=== PATIENT | female | born 1960 | race Caucasian/White ===

== ENCOUNTER 2016-10-21 07:17 | Emergency (ER) | payer MEDICARE, MEDICAID ==
[~2016-10-21] VITALS: Ht 167.6 cm; Wt 56.2 kg
[~2016-10-21 07:17] MED LIST: ACIDOPHILUS1 EAC6 PO; ADULT WAL-100 MG/5 M ORAL; ATIVAN2 MG ORAL; ENALAPRIL MALE2.5 MG ORAL; KLONOPIN0.5 MG ORAL; KLONOPIN1 MG ORAL; LYSINE PO; MUCINEX100 MG PO; SYNTHROID88 MCG ORAL; VESICARE5 MG ORAL
[2016-10-21 07:50] VITALS: BP 98/63
--- NOTE | 2016-10-21 07:54 | Emergency Room Report ---
History of Present Illness General Chief Complaint: Female Urogenital Problems Source: Patient, Family Member Present Illness HPI The patient is brought in by her sister. Apparently she was started on ciprofloxacin for possible UTI. She has no symptoms but the underwear has been somewhat smelly. There's no fever, vomiting, diarrhea, abdominal pain, dysuria , polyuria. Ciprofloxacin one dose was given last night. Family member states that her recent kidney function is been off and physicians have been following her creatinines. She doesn't have recent lab studies. She also doesn't have a copy of the urinalysis that was performed. She only has one kidney. The patient is on Klonopin and is developmentally delayed. She also has a history of hypertension. There is some question whether she is bipolar and they 're considering use of Paxil or other medication. The sister is looking for a competent psychiatrist for evaluation. Patient rambles and does not answer most questions, however she denies pain. Allergies: Coded Allergies: No Known Allergies (Unverified , 08/01/14) Patient History Past Medical History: see triage record Social History Narrative assisted living, now with sister for weekend Last Menstrual Period: na Reviewed Nursing Documentation: PMH: Agreed, PSxH: Agreed Nursing Documentation-PMH Past Medical History: No History, Except For Review of Systems All Other Systems: negative except mentioned in HPI Physical Exam Vital Signs Date Time Temp Pulse Resp B/P (MAP) Pulse Ox O2 Delivery O2 Flow Rate FiO2 10/21/16 07:25 98.1 62 18 98/63 98 Room Air Sp02 EP Interpretation: reviewed, normal General Appearance: well appearing, no apparent distress, thin, other - GCS 14 Head: normocephalic Eyes: bilateral eye normal inspection, bilateral eye PERRL ENT: moist mucus membranes, other - hearing aids Neck: supple Respiratory: lungs clear, normal breath sounds Cardiovascular #1: regular rate, rhythm Cardiovascular #2: 2+ radial (R) Gastrointestinal: normal inspection, normal bowel sounds, non tender, no mass, non-distended Genitourinary: no CVA tenderness Musculoskeletal: back normal, gait/station normal, normal range of motion Neurologic: alert, motor strength/tone normal, sensory intact, normal gait, speech normal - rambling, oriented - X2 Psychiatric: mood/affect normal - flat and loquatious Skin: normal inspection, warm/dry Medical Decision Making Diagnostic Impression: Primary Impression: Renal insufficiency Additional Impressions: Dehydration Development delay Chromosomal abnormality ER Course The patient presents with possible UTI and a suggestion of elevated creatinine. One dose of ciprofloxacin has been given. The patient will be evaluated with urinalysis and labs. No significant pyuria. Creatinine is elevated. Lytes OK. Normal WBC. One dose of cipro last night should not correct pyuria. Suspect contamination. Based on elevated creatinine, I believe cipro is not indicated and might cause harm. Copies of labs sent with sister who had many questions which were answered. Patient stable for outpatient observation and treatment. Laboratory Tests Test 10/21/16 05:00 10/21/16 07:50 White Blood Count 4.2 K/UL (4.8-10.8) L Red Blood Count 3.99 M/UL (4.20-5.40) L Hemoglobin 13.0 G/DL (12.0-16.0) Hematocrit 38.5 % (37.0-47.0) Mean Corpuscular Volume 96 FL (80-99) Mean Corpuscular Hemoglobin 32.6 PG (27.0-31.0) H Mean Corpuscular Hemoglobin Concent 33.8 G/DL (32.0-36.0) Red Cell Distribution Width 12.3 % (11.6-14.8) Platelet Count 120 K/UL (150-450) L Mean Platelet Volume 8.5 FL (6.5-10.1) Neutrophils (%) (Auto) 62.7 % (45.0-75.0) Lymphocytes (%) (Auto) 23.8 % (20.0-45.0) Monocytes (%) (Auto) 9.4 % (1.0-10.0) Eosinophils (%) (Auto) 3.5 % (0.0-3.0) H Basophils (%) (Auto) 0.6 % (0.0-2.0) Sodium Level 139 mEQ/L (135-145) Potassium Level 4.5 mEQ/L (3.4-4.9) Chloride Level 102 mEQ/L (98-107) Carbon Dioxide Level 28 mEQ/L (20-30) Anion Gap 9 (5-15) Blood Urea Nitrogen 34 mg/dL (7-23) H Creatinine 1.6 mg/dL (0.5-0.9) H Estimate Glomerular Filtration Rate 33.5 mL/min (>60) Glucose Level 96 mg/dL (74-106) Calcium Level 9.7 mg/dL (8.6-10.2) Total Bilirubin 0.2 mg/dL (0.0-1.2) Aspartate Amino Transferase (AST) 28 U/L (5-40) Alanine Aminotransferase (ALT) 34 U/L (3-33) H Alkaline Phosphatase 63 U/L (35-104) Total Protein 7.1 g/dL (6.6-8.7) Albumin 4.3 g/dL (3.5-5.2) Globulin 2.8 g/dL Albumin/Globulin Ratio 1.5 (1.0-2.7) Urine Color Pale yellow Urine Appearance Clear Urine pH 6 (4.5-8.0) Urine Specific [place] 1.010 (1.005-1.035) Urine Protein Negative (NEGATIVE) Urine Glucose (UA) Negative (NEGATIVE) Urine Ketones Negative (NEGATIVE) Urine Occult Blood Negative (NEGATIVE) Urine Nitrite Negative (NEGATIVE) Urine Bilirubin Negative (NEGATIVE) Urine Urobilinogen Normal MG/DL (0.0-1.0) Urine Leukocyte Esterase 1+ (NEGATIVE) H Urine RBC 0-2 /HPF (0 - 2) Urine WBC 2-4 /HPF (0 - 2) Urine Squamous Epithelial Cells Few /LPF (NONE/OCC) Urine Bacteria Few /HPF (NONE) Last Vital Signs Date Time Temp Pulse Resp B/P (MAP) Pulse Ox O2 Delivery O2 Flow Rate FiO2 10/21/16 09:40 98.1 68 18 96/56 100 Room Air Status: improved Disposition: HOME, SELF-CARE Condition: Improved Referrals: NON PHYSICIAN (PCP) Tristan Krause M.D. Oct 21, 2016 07:54
[2016-10-21 08:02] LABS: APPEARANCE,URINE CLEAR; KETONES,URINE NEGATIVE (NEGATIVE); LEUKOCYTE ESTERASE ,URINE 1+ (NEGATIVE); NITRITE,URINE NEGATIVE (NEGATIVE); PH,URINE 6 (4.5-8.0); PROTEIN,URINE NEGATIVE (NEGATIVE); UROBILINOGEN,URINE NORMAL MG/DL (0.0-1.0)
[2016-10-21 08:22] LABS: BACTERIA,URINE FEW /HPF; RBC,URINE 0-2 /HPF (0 - 2); SQUAMOUS EPITHELIAL CELL,UR FEW /LPF (NONE/OCC)
[2016-10-21 08:37] LABS: BASOPHILS % (AUTO) 0.6 % (0.0-2.0); EOSINOPHILS % (AUTO) 3.5 % (0.0-3.0); LYMPHOCYTES % (AUTO) 23.8 % (20.0-45.0); MEAN CORPUSCULAR HEMOGLOBIN 32.6 PG (27.0-31.0); MEAN CORPUSCULAR HGB CONC 33.8 G/DL (32.0-36.0); MEAN CORPUSCULAR VOLUME 96 FL (80-99); MEAN PLATELET VOLUME 8.5 FL (6.5-10.1); MONOCYTES % (AUTO) 9.4 % (1.0-10.0); NEUTROPHILS % (AUTO) 62.7 % (45.0-75.0); PLATELET COUNT 120 K/UL (150-450); RED BLOOD COUNT 3.99 M/UL (4.20-5.40); RED CELL DISTRIBUTION WIDTH 12.3 % (11.6-14.8); WHITE BLOOD COUNT 4.2 K/UL (4.8-10.8)
[2016-10-21 08:49] LABS: ALBUMIN/GLOBULIN RATIO 1.5 (1.0-2.7); CALCIUM 9.7 mg/dL (8.6-10.2); CREATININE 1.6 mg/dL (0.5-0.9); GLOMERULAR FILTRATION RATE 33.5 mL/min (>60); POTASSIUM 4.5 mEQ/L (3.4-4.9); TOTAL PROTEIN 7.1 g/dL (6.6-8.7)
[2016-10-21 09:40] VITALS: BP 96/56
== END 2016-10-21 09:40 | disposition home or self-care (01) ==
LOC: EMR 07:45
DX: N28.9 Disorder of kidney and ureter, unspecified (principal); E86.0 Dehydration; Q99.9 Chromosomal abnormality, unspecified
CPT/HCPCS: 36415; 80053; 81003; 85025; 99282

== ENCOUNTER 2017-04-20 07:58 | Emergency (ER) | payer MEDICARE, MEDICAID ==
[~2017-04-20] VITALS: Ht 167.6 cm; Wt 56.7 kg
[2017-04-20 08:08] VITALS: BP 113/66
[2017-04-20 08:43] VITALS: BP 113/60
--- NOTE | 2017-04-21 14:48 | Emergency Room Report ---
History of Present Illness General Chief Complaint: Sore Throat Source: Patient, Medical Record Present Illness HPI 57-year-old female presents ED for evaluation. Brought in by sister. Patient noted to have cough, congestion for the last few days. Afebrile in triage. Cough is productive of yellowish phlegm. Patient has cognitive delay. Is able to answer some questions did not provide details. Denies chest pain shortness of breath. Sister states patient has good energy and good appetite. No other aggravating relieving factors. Denies any other associated symptoms Allergies: Coded Allergies: No Known Allergies (Unverified , 08/01/14) Patient History Past Medical History: other - congitive delay Past Surgical History: none Pertinent Family History: none Social History: Denies: smoking, alcohol use, drug use Now: No Immunizations: UTD Reviewed Nursing Documentation: PMH: Agreed, PSxH: Agreed Nursing Documentation-PMH Past Medical History: No History, Except For Review of Systems All Other Systems: negative except mentioned in HPI Physical Exam Vital Signs Date Time Temp Pulse Resp B/P (MAP) Pulse Ox O2 Delivery O2 Flow Rate FiO2 04/20/17 08:08 98.4 68 18 113/66 99 Room Air 98.4 Sp02 EP Interpretation: reviewed, normal General Appearance: no apparent distress, alert, GCS 15, non-toxic, thin Head: normocephalic, atraumatic Eyes: bilateral eye normal inspection, bilateral eye PERRL ENT: hearing grossly normal, normal pharynx, no angioedema, normal voice Neck: full range of motion, supple/symm/no masses Respiratory: chest non-tender, lungs clear, normal breath sounds, speaking full sentences Cardiovascular #1: regular rate, rhythm, no edema Cardiovascular #2: 2+ carotid (R), 2+ carotid (L), 2+ radial (R), 2+ radial (L) , 2+ dorsalis pedis (R), 2+ dorsalis pedis (L) Gastrointestinal: normal bowel sounds, non tender, soft, non-distended, no guarding, no rebound Rectal: deferred Genitourinary: normal inspection, no CVA tenderness Musculoskeletal: back normal, gait/station normal, normal range of motion, non- tender Neurologic: alert, oriented x3, responsive, motor strength/tone normal, sensory intact, speech normal Psychiatric: judgement/insight normal, memory normal, mood/affect normal, no suicidal/homicidal ideation Reflexes: 3+ bicep (R), 3+ bicep (L), 3+ tricep (R), 3+ tricep (L), 3+ knee (R) , 3+ knee (L) Skin: normal color, warm/dry, well hydrated, other - small area of induration/ erythema to R buttocks. no discharge Lymphatic: no adenopathy Medical Decision Making Diagnostic Impression: Primary Impression: Upper respiratory infection Qualified Codes: J06.9 - Acute upper respiratory infection, unspecified ER Course Hospital Course 57-year-old female presents to ED complaining of cough, congestion Differential diagnoses include: URI, pharyngitis, otitis media, asthma Clinical course Patient placed on stretcher. After initial history, physical exam reveals a middle aged female in no acute distress. Bilateral TM unremarkable. No pharyngeal erythema. No tonsillar exudates. No lymphadenopathy. lungs clear. abdomen soft. Clinical findings consistent with URI. Reassurance given to sister Diagnosis - URI Stable and discharged home. Instructed to followup with PMD. Return to ED if symptoms recur or worsen Last Vital Signs Date Time Temp Pulse Resp B/P (MAP) Pulse Ox O2 Delivery O2 Flow Rate FiO2 04/20/17 08:43 98.4 68 18 113/60 99 Room Air Status: improved Disposition: HOME, SELF-CARE Condition: Stable Referrals: NON PHYSICIAN (PCP) NOT CHOSEN IPA/MD,REFERRING Patient Instructions: Pharyngitis, [id number] CARMELITA MCNEILL M.D. Apr 21, 2017 14:48
== END 2017-04-20 08:49 | disposition home or self-care (01) ==
LOC: EMR 08:29
DX: J06.9 Acute upper respiratory infection, unspecified (principal)
CPT/HCPCS: 99282

== ENCOUNTER 2017-04-26 10:36 | Emergency (ER) | payer MEDICARE, MEDICAID ==
[~2017-04-26] VITALS: Ht 167.6 cm; Wt 54.4 kg
[2017-04-26 10:59] VITALS: BP 103/66
[2017-04-26] MEDS ORDERED: ACYCLOVIR400 MG ORAL (11:06)
[2017-04-26 11:13] VITALS: BP 103/66
--- NOTE | 2017-04-26 11:54 | Emergency Room Report ---
History of Present Illness General Chief Complaint: Skin Rash/Abscess Source: Patient, Family Member, Medical Record Present Illness HPI 57-year-old female, history of herpes zoster, brought in by her sister, coming from [facility], developed a rash to nose. Has been there for 2 days. Was vesicular now crusting. Patient also has renal insufficiency, the last labs that were brought in by her sister, creatinine was 1.5 Allergies: Coded Allergies: No Known Allergies (Unverified , 08/01/14) Patient History Past Medical History: see triage record Past Surgical History: none Pertinent Family History: none Reviewed Nursing Documentation: PMH: Agreed, PSxH: Agreed Nursing Documentation-PMH Past Medical History: No History, Except For Review of Systems All Other Systems: negative except mentioned in HPI Physical Exam Vital Signs Date Time Temp Pulse Resp B/P (MAP) Pulse Ox O2 Delivery O2 Flow Rate FiO2 04/26/17 10:45 97.1 66 18 103/64 97 Room Air 97.2 Sp02 EP Interpretation: reviewed, normal General Appearance: other - dementia, confused, but alert and nad Head: normocephalic, atraumatic Eyes: bilateral eye normal inspection, bilateral eye PERRL, bilateral eye EOMI ENT: other - vesciular crusted rash L nose Neck: normal inspection, full range of motion, supple Respiratory: normal inspection, lungs clear, normal breath sounds, no respiratory distress, no retraction, no wheezing, speaking full sentences, chest symmetrical Cardiovascular #1: normal inspection, regular rate, rhythm, no edema, normal capillary refill Cardiovascular #2: 2+ radial (R), 2+ radial (L) Gastrointestinal: normal inspection, non tender, soft, non-distended, no guarding Musculoskeletal: normal inspection, back normal, normal range of motion, non- tender Neurologic: alert, normal gait, speech normal Psychiatric: other - dementia Skin: normal inspection, normal color, no rash, warm/dry, well hydrated, normal turgor Medical Decision Making Diagnostic Impression: Primary Impression: Herpes zoster ER Course 57-year-old female with vesicular rash to left nose DDX: Herpes zoster/shingles Plan: None ER course: Patient has remained stable during ED stay. Disposition: Patient is to be discharged to home with sister Prescriptions given are acyclovir, renal adjusted dose, patient's calculated creatinine clearance is 16, she is given a be given 800 mg 3 times a day for 7 days sister is instructed to follow up with their primary care doctor within 5 days. Please note that this Emergency Department Report was dictated using [place] [employer] bench technology software, occasionally this can lead to erroneous entry secondary to interpretation by the dictation equipment Last Vital Signs Date Time Temp Pulse Resp B/P (MAP) Pulse Ox O2 Delivery O2 Flow Rate FiO2 04/26/17 11:13 97.5 82 18 103/66 98 Room Air 97.5 Disposition: HOME, SELF-CARE Condition: Improved Scripts Acyclovir* (ACYCLOVIR*) 400 Mg Tablet 800 MG ORAL EVERY 8 HOURS for 7 Days, #42 TAB 0 Refills Prov: Cole Fuchs M.D. 04/26/17 Referrals: NON PHYSICIAN (PCP) Patient Instructions: Shingljennifer, [id number] Additional Instructions: PLEASE FOLLOW UP WITH YOUR DOCTOR IN 1 WEEK Cole Fuchs M.D. Apr 26, 2017 11:54
== END 2017-04-26 11:13 | disposition home or self-care (01) ==
LOC: EMR 11:00
DX: B00.9 Herpesviral infection, unspecified (principal)
CPT/HCPCS: 99283